=== PATIENT | female | born 1955 | race Caucasian/White ===

== ENCOUNTER 2023-03-11 17:24 | Emergency (ER) | payer MEDICARE, SELFPAY ==
[2023-03-11 17:45] VITALS: BP 178/78; PULSE 73; RESP 20; TEMP 36.6; O2SAT 95; BMI 22.6
--- NOTE | 2023-03-11 18:01 | EXP.UTC ---
Discharge Plan Disposition Patient Disposition: Home, Self-Care Condition: Good Prescriptions Prescriptions: New methylprednisolone [Medrol (Anthony)] 4 mg tablets,dose pack See Rx Instructions .ROUTE .COMPLEX 6 Days Qty: 21 0RF Rx Instructions: 4 mg orally ;Medrol dose taper anthony azithromycin 250 mg tablet See Rx Instructions .ROUTE .COMPLEX Qty: 6 0RF Rx Instructions: For 250 mg dose pack: take 500 mg today (day 1), then 250 mg for 4 days (days 2-5) No Action pregabalin 75 mg capsule 75 mg PO DAILY Label Comments: TAKE 1 CAPSULE BY MOUTH TWICE DAILY Referrals Follow up/Referrals: Provider,Referral, MD [Primary Care Provider] - See instructions Clinical Impressions Clinical Impression: Acute lower respiratory infection Instructions Patient Instructions: Acute Bronchitis Discharge ED Provider: Leslye Ruiz [facility] General Stated complaint: SOB Mode of Arrival: Ambulatory Source of Information: Patient Limitations: No Limitations Time Seen by Provider: 03/11/23 18:00 Description of Symptoms (Recalled from Triage Doc. by RN): PATIENT C/O CHEST CONGESTION AND COUGH X 3-4 DAYS, HOWEVER SHE STATES COUGH IS BETTER HEENT Symptoms (Recalled from RN notes): No Resp Symptoms (Recalled from RN notes): Yes Skin Symptoms (Recalled from RN notes): No MS Symptoms (Recalled from RN notes): No Functional Status (Recalled from RN notes): WNL History of Present Illness Provider Complaint: Pt relates that she has been sick for a couple of weeks and has been to her doctor and received cough medication. She relates that she is now coughing up thick white phlegm and has periods where she feels like she is short of air. She reports that this has gotten better but continues to cough up phlegm and have a strong cough. states that he has similar symptoms, but his symptoms resolved in a week. Related Data Home Medications Medication Instructions Recorded Confirmed pregabalin 75 mg capsule 75 mg PO DAILY NERVE DAMAGE 03/11/23 03/11/23 Previous Rx's Medication Instructions Recorded azithromycin 250 mg tablet See Rx Instructions PO .COMPLEX #6 03/11/23 tabs methylprednisolone 4 mg tablets in See Rx Instructions .Route 03/11/23 a dose pack (Medrol (Anthony)) .COMPLEX 6 days #21 tabs Allergies Allergy/AdvReac Type Severity Reaction Status Date / Time No Known Allergies Allergy Verified 03/11/23 17:56 Worker's Comp Is this a Worker's Comp case?: No [facility] Disclaimer: The information contained in this section may have been updated after the patient was seen, as this information can be updated by other users. Surgical History (Updated 03/11/23 @ 17:57 by Maribell Manzano RN) History of cholecystectomy Social History Smoking Status: Former smoker alcohol intake: never current occupational status: retired Travel in the last 8 weeks: None ROS Obtained: Yes All systems reviewed & no additional complaints except as documented Constitutional Constitutional: Reports system reviewed and no additional complaints, except as documented and Reports malaise Eyes Eyes: Reports system reviewed and no additional complaints, except as documented ENT Ears, Nose, Mouth, and Throat: Reports system reviewed and no additional complaints, except as documented Cardiovascular Cardiovascular: Reports system reviewed and no additional complaints, except as documented Respiratory Respiratory: Reports system reviewed and no additional complaints, except as documented, Reports as per HPI, Reports shortness of breath and Reports cough with sputum production Gastrointestinal Gastrointestingal: Reports system reviewed and no additional complaints, except as documented Genitourinary Female Genitourinary: Reports system reviewed and no additional complaints, except as documented Musculoskeletal Musculoskeletal: Reports system reviewed and no additional complaints, except as documente
[2023-03-11 18:20] VITALS: BP 178/78; PULSE 73; RESP 20; TEMP 36.6; O2SAT 95
== END 2023-03-11 18:26 | disposition home or self-care (01) ==
PROVIDERS: Emergency Provider Nurse Practitioner Family
DX: J22 Unspecified acute lower respiratory infection (principal); R06.2 Wheezing; Z87.891 Personal history of nicotine dependence
CPT/HCPCS: 99204; 99212; G0463

== ENCOUNTER → 2023-03-29 19:25 | Outpatient (CLI) | payer MEDICARE, SELFPAY | PROVIDERS: PCP Nurse Practitioner Family; Visit Provider Nurse Practitioner Family | DX: R31.9 Hematuria, unspecified (principal) | CPT/HCPCS: 87086 ==

== ENCOUNTER → 2023-04-07 07:46 | Outpatient (CLI) | payer MEDICARE, SELFPAY ==
--- NOTE | 2023-04-07 07:46 | MR_ITS ---
FINAL REPORT CLINICAL HISTORY: memory loss FINDINGS: Multiplanar MR imaging of the brain was performed without and with contrast. Scattered foci of increased T2 signal are seen in the cerebral white matter that have a nonspecific appearance but likely represent mild chronic ischemic/gliotic changes. There is no evidence of intracranial hemorrhage or mass. No abnormal ventricular dilatation is identified. There is no evidence of shift of the midline structures. No abnormal extra-axial fluid collection is seen. No area of abnormal restricted diffusion is identified. The posterior fossa and brainstem have an unremarkable appearance. No abnormal contrast enhancement is seen. Normal major vessel vascular flow voids are seen. IMPRESSION: Mild chronic ischemic/gliotic changes. No acute intracranial abnormality. Reviewed, Interpreted and Dictated by Syd Mathew III, MD Transcribed by Ashley Hodges Authenticated and . [facility]
[2023-04-07 07:51] LABS: Microscopic, Urine URINE MICROSCOPIC (MICROSCOPIC)
[2023-04-07 08:09] LABS: Appearance,Urine CLEAR (Clear); Bilirubin,Urine Negative (Negative); Blood, Urine TRACE-I (Negative); Color,Urine YELLOW (Yellow); Glucose,Urine (UA) Negative (Negative); Ketones,Urine Negative (Negative); Leukocyte Esterase,Urine Negative (Negative); Nitrate,Urine Negative (Negative); PH,Urine 6.5 (5.0-8.5); Protein,Urine Negative (Negative); Urobilinogen,Urine 0.2 EU/dl (0.2)
[2023-04-07 08:21] LABS: Basophils # 0.1 K/mm3 (0-0.2); Basophils % 1.1 % (0.1-2.0); Chloride 107 mmol/L (98-107); Eosinophils # 0.2 K/mm3 (0.0-0.4); Eosinophils % 3.5 % (0.1-12.0); Hematocrit 46.4 % (37.0-47.0); Hemoglobin 14.2 g/dL (12.2-16.2); Lymphocytes # 2.3 K/mm3 (0.7-4.5); Lymphocytes % 47.4 % (10-50); Mean Corpuscular HGB Conc 30.6 g/dL (31.8-35.4); Mean Corpuscular Hemoglobin 30.6 pg (27.0-31.2); Mean Corpuscular Volume 100.3 fl (81-99); Monocytes # 0.3 K/mm3 (0.1-1.0); Monocytes % 6.4 % (1.7-9.3); Neutrophils # 2.1 K/mm3 (1.8-7.8); Neutrophils % 41.7 % (37.0-80.0); Platelet Count 216 K/mm3 (142-424); Potassium 4.6 mmoL/L (3.5-5.1); Red Blood Count 4.63 M/mm3 (4.20-5.40); Red Cell Distribution Width 13.6 % (11.5-17.5); Sodium 142 mmol/L (136-145); White Blood Count 4.9 K/mm3 (4.8-10.8)
[2023-04-07 08:22] LABS: Bacteria,Urine Trace /lpf; Squamous Epithelial Cell,Urine Occasional #/hpf (0-5)
[2023-04-07 08:24] LABS: Alanine Aminotransferase 23 U/L (12-78); Albumin/Globulin Ratio 1.5 (1.1-1.8); Alkaline Phosphatase 54 U/L (38-126); Anion Gap 10.6 mEq/L (5-15); Aspartate Amino Transferase 46 U/L (14-36); Bilirubin,Total 0.3 mg/dl (0.2-1.3); Blood Urea Nitrogen 15 mg/dl (7-17); Carbon Dioxide 29 mmol/L (22.0-30.0); Cholesterol 199 mg/dl (140-200); Estimated Glomerular Filt Rate 83 ml/min (>60); GFR (African American) 101 ML/MIN (>60); Globulin 2.7 g/dL (1.3-3.2); Total Protein,Serum 6.7 g/dl (6.3-8.2); Triglycerides 55 mg/dl (30-150); VLDL Cholesterol 11 mg/dL (0-40)
[2023-04-07 08:25] LABS: Calcium 8.6 mg/dl (8.4-10.2); Chol/HDL Ratio 2.7 (1-3.5); Glucose 87 mg/dl (74-100); HDL Cholesterol 75 mg/dl (40-60)
[2023-04-07 08:26] LABS: Hemoglobin A1C 5.4 % (4.0-6.0)
[2023-04-07 08:36] LABS: Direct LDL Cholesterol 78.61 mg/dL (100-129)
[2023-04-07 09:07] LABS: 25-OH Vitamin D, Total 80.4 ng/mL (30-100)
[2023-04-07 09:09] LABS: Thyroid Stimulating Hormone 4.64 uIU/mL (0.465-4.68)
[2023-04-07 09:28] LABS: Vitamin B12 991 pg/mL (239-931)
[2023-04-08 11:57] LABS: Rapid Plasma Reagin Ab Titer Non Reactive (NonRea<1:1)
== END ==
PROVIDERS: PCP Nurse Practitioner Family; Visit Provider Nurse Practitioner Family
DX: R41.3 Other amnesia (principal); I10 Essential (primary) hypertension; E11.9 Type 2 diabetes mellitus without complications; E55.9 Vitamin D deficiency, unspecified; Z13.220 Encounter for screening for lipoid disorders; Z79.899 Other long term (current) drug therapy
CPT/HCPCS: 36415; 70553; 80053; 80061; 81001; 82306; 82607; 83036; 84443; 85025; 86593; A9576

== ENCOUNTER → 2023-04-15 07:32 | Outpatient (CLI) | payer MEDICARE, SELFPAY ==
--- NOTE | 2023-04-15 07:32 | MM_ITS ---
PROCEDURE INFORMATION: Exam: MG Bilateral Screening 3D Mammography Exam date and time: 04/15/2023 8:11 AM Age: 68 years old Clinical indication: Screening examination; Additional info: Screening mammogram . Family history of breast carcinoma. TECHNIQUE: Imaging protocol: Bilateral Screening tomosynthesis and 2D mammography including computer-aided detection (CAD) when performed. COMPARISON: 1. MG Screening-Bilateral Mammography 03/07/2019 9:02 AM 2. MG MAMMO SCREENING DIGITAL BILAT 05/24/2016 12:02 PM FINDINGS: MAMMOGRAPHY: Breast composition: There are scattered areas of fibroglandular density. Mass: No suspicious masses. Architectural distortion: No suspicious distortion. Calcifications: No suspicious calcifications. Asymmetric density: None. Skin thickening: None. Axillary adenopathy: None. IMPRESSION: 1. No mammographic evidence of malignancy. Annual screening is recommended unless otherwise clinically indicated. 2. Given the reported risk factors for this patient, a breast cancer risk assessment may prove useful for further evaluation. ASSESSMENT: BI-RADS Category 1: Negative
--- NOTE | 2023-04-15 07:32 | XR_ITS ---
FINAL REPORT CLINICAL HISTORY: . post menopausal screening FINDINGS: Using L1-4, the bone mineral density of the spine is 0.869 g/cm2, corresponding to T-score of -1.6. Using the left hip, the bone mineral density of the femoral neck is 0.721 g/cm2, corresponding to a T-score of -1.8 Using the right hip: The bone mineral density of the femoral neck is 0.621 g/cm2, corresponding to a T-score of -2.1. FRAX 10 year fracture risk is 29% for a hip fracture and 5.2% for a major osteoporotic fracture. IMPRESSION: Low bone mineral density of the lumbar spine and hips. NOTE: T-score: Standard deviation compared with peak bone mass of young adult mean. *Following the recommendations of the International Society of Bone densitometry, classification of hip BMD is based on the lower of two T-scores; total hip or femoral neck. Reviewed, Interpreted and Dictated by Syd Mathew III, MD Transcribed by Ashley Hodges Authenticated and [facility]
== END ==
PROVIDERS: PCP Nurse Practitioner Family; Visit Provider Nurse Practitioner Family
DX: Z12.31 Encounter for screening mammogram for malignant neoplasm of breast (principal); Z13.820 Encounter for screening for osteoporosis; Z78.0 Asymptomatic menopausal state
CPT/HCPCS: 77063; 77067; 77080

== ENCOUNTER → 2023-04-19 07:34 | Outpatient (CLI) | payer MEDICARE, SELFPAY ==
[2023-04-20 22:08] LABS: Neisseria gonorrhoeae, NAA Negative (Negative)
== END ==
PROVIDERS: PCP Nurse Practitioner Family; Visit Provider Nurse Practitioner Family
DX: R41.3 Other amnesia (principal); Z11.3 Encounter for screening for infections with a predominantly sexual mode of transmission; Z72.89 Other problems related to lifestyle
CPT/HCPCS: 87491; 87591

== ENCOUNTER → 2023-08-16 11:47 | Outpatient (CLI) | payer MEDICARE, SELFPAY ==
--- NOTE | 2023-08-16 11:53 | XR_ITS ---
FINAL REPORT CLINICAL HISTORY: LUQ pain, diarrhea, fevers COMPARISON: None FINDINGS: A single supine view the abdomen was obtained. The bowel gas pattern is nonspecific but nonobstructive. There are no pathologic calcifications. Osseous structures are within normal limits. IMPRESSION: Nonspecific but nonobstructive bowel gas pattern. Reviewed, Interpreted and Dictated by Deanna Preston MD Transcribed by Jaz Negrete Authenticated and [facility]
[2023-08-16 16:17] LABS: Basophils % 0.7 % (0.1-2.0); Eosinophils % 0.7 % (0.1-12.0); Hematocrit 46.6 % (37.0-47.0); Hemoglobin 15.8 g/dL (12.2-16.2); Lymphocytes # 2.1 K/mm3 (0.7-4.5); Lymphocytes % 44.5 % (10-50); Mean Corpuscular HGB Conc 33.8 g/dL (31.8-35.4); Mean Corpuscular Hemoglobin 32.8 pg (27.0-31.2); Mean Corpuscular Volume 96.9 fl (81-99); Mean Platelet Volume 10.8 fl (7.4-10.4); Monocytes # 0.5 K/mm3 (0.1-1.0); Monocytes % 9.8 % (1.7-9.3); Neutrophils # 2.1 K/mm3 (1.8-7.8); Neutrophils % 44.3 % (37.0-80.0); Platelet Count 161 K/mm3 (142-424); Red Blood Count 4.81 M/mm3 (4.20-5.40); Red Cell Distribution Width 13.5 % (11.5-17.5); White Blood Count 4.8 K/mm3 (4.8-10.8)
[2023-08-16 16:36] LABS: Alanine Aminotransferase 105 U/L (12-78); Albumin Level 4.2 g/dl (3.5-5.0); Albumin/Globulin Ratio 1.6 (1.1-1.8); Alkaline Phosphatase 93 U/L (38-126); Amylase 52 U/L (30-110); Anion Gap 16.7 mEq/L (5-15); Aspartate Amino Transferase 75 U/L (14-36); Bilirubin,Total 0.3 mg/dl (0.2-1.3); Blood Urea Nitrogen 17 mg/dl (7-17); Carbon Dioxide 24 mmol/L (22.0-30.0); Chloride 104 mmol/L (98-107); Estimated Glomerular Filt Rate 83 ml/min (>60); GFR (African American) 101 ML/MIN (>60); Globulin 2.6 g/dL (1.3-3.2); Glucose 69 mg/dl (74-100); Lipase 80 U/L (23-300); Potassium 4.7 mmoL/L (3.5-5.1); Sodium 140 mmol/L (136-145); Total Protein,Serum 6.8 g/dl (6.3-8.2)
== END ==
PROVIDERS: PCP Nurse Practitioner Family; Visit Provider Nurse Practitioner Family
DX: R10.12 Left upper quadrant pain (principal); R19.7 Diarrhea, unspecified
CPT/HCPCS: 74019; 80053; 82150; 83690; 85025